=== PATIENT | female | born 1980 | race African-American/Black ===

== ENCOUNTER 2017-03-25 14:10 | Emergency (ER) | payer OTHER ==
[~2017-03-25] VITALS: Ht 165.1 cm; Wt 64.0 kg
--- NOTE | ~2017-03-25 | EKG ---
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
[~2017-03-25 14:10] MED LIST: PREDNISONE50 MG PO
[2017-03-25 14:32] LABS: URINE BILIRUBIN NEGATIVE (Negative); URINE BLOOD NEGATIVE (Negative); URINE COLOR YELLOW; URINE GLUCOSE-RANDOM* NEGATIVE (Negative); URINE KETONES NEGATIVE (Negative); URINE NITRITE NEGATIVE (Negative); URINE PROTEIN (DIPSTICK) NEGATIVE (Negative); URINE UROBILINOGEN 0.2 E.U./dl (0.2-1.0)
[2017-03-25 16:03] LABS: ABSOLUTE NEUTROPHILS 3.6 thou/uL (1.4-8.2); BASOPHILS 0.7 % (0.0-2.0); EOSINOPHILS 1.4 % (0.0-3.0); HEMATOCRIT 42.7 % (37.0-47.0); HEMOGLOBIN 14.3 gm/dL (12.0-15.0); LYMPHOCYTES 30.5 % (24.0-44.0); MCH 28.9 pg (26.0-34.0); MCHC 33.6 g/dL (28.0-37.0); MCV 86.1 fL (80.0-100.0); MONOCYTES 7.9 % (1.0-8.0); PLATELET COUNT 374 thou/uL (150-400); POLYS 59.5 % (36.0-66.0); RBC 4.96 mil/uL (4.20-5.00); RDW 12.4 % (10.5-14.5)
[2017-03-25 16:08] LABS: MANUAL DIFF NO
[2017-03-25 16:18] LABS: CALCIUM 9.6 mg/dL (8.5-10.1); CREATININE 0.8 mg/dL (0.6-1.0)
[2017-03-25 16:24] LABS: ALBUMIN 4.3 g/dL (3.4-5.0); TOTAL BILIRUBIN 0.4 mg/dL (<0.1-1.0); TOTAL PROTEIN 8.4 g/dL (6.4-8.2)
[2017-03-25 17:22] VITALS: BP 115/80
== END 2017-03-25 17:23 | disposition home or self-care (01) ==
LOC: ER 14:10
PROVIDERS: Nurse Practitioner Family
DX: R53.83 Other fatigue (principal); F10.99 Alcohol use, unspecified with unspecified alcohol-induced disorder; Z87.440 Personal history of urinary (tract) infections